=== PATIENT | male | born 1950 | race Hispanic/Latino ===

== ENCOUNTER 2020-06-26 15:39 | Emergency (ER) | payer OTHER ==
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
--- NOTE | 2020-06-26 19:38 | Cat Scan Report ---
CT head/brain wo con INDICATION / CLINICAL INFORMATION: 69 years Male; head injury. TECHNIQUE: Routine CT head without contrast. All CT scans at this location are performed using CT dos e reduction for ALARA by means of automated exposure control. COMPARISON: None. FINDINGS: BRAIN / INTRACRANIAL CONTENTS: The motion degrades the image quality. However, there is extensive cer ebral white matter disease most consistent with microvascular angiopathy. There is mild cerebral atro phy with associated mild prominence of the ventricular system. There is no clear CT evidence of acute intracranial hemorrhage or significant mass effect. ORBITS: No significant abnormality of visualized orbits. SINUSES / MASTOIDS: No significant abnormality in the visualized paranasal sinuses or mastoid air antonino ls. CRANIOCERVICAL JUNCTION: No significant abnormality. ADDITIONAL FINDINGS: None. IMPRESSION: 1. There is extensive microvascular angiopathy as described without CT evidence of acute intracranial hemorrhage. Signer Name: Guille Jennings MD Signed: 06/26/2020 7:34 PM Workstation Name: [id number]
[2020-06-26] MEDS ORDERED: ACETAMINOPHEN 500 MG TAB PO ONE (19:58)
[2020-06-26] MEDS ORDERED: DIPHtheria,PERTUSSIS(ACELL),TETANUS VACCINE/PF 0.5 ML VIAL IM ONE (19:59)
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
--- NOTE | 2020-06-26 20:48 | XRay Report ---
LEFT KNEE 3 VIEWS INDICATION / CLINICAL INFORMATION: Injury to left knee with pain and swelling COMPARISON: 12/25/2018 FINDINGS: BONES / JOINT(S): No acute fracture or subluxation. No significant arthritis. SOFT TISSUES: There is an effusion in the suprapatella bursa. ADDITIONAL FINDINGS: None. Signer Name: Chaz Mcclelland MD Signed: 06/26/2020 8:44 PM Workstation Name: [id number]
[2020-06-26 22:04] VITALS: BP 160/81
== END 2020-06-26 21:35 | disposition home or self-care (01) ==
LOC: ED 15:39
DX: S01.01XA Laceration without foreign body of scalp, initial encounter (principal); S20.229A Contusion of unspecified back wall of thorax, initial encounter; S09.90XA Unspecified injury of head, initial encounter; M25.462 Effusion, left knee; Z79.899 Other long term (current) drug therapy; Y04.8XXA Assault by other bodily force, initial encounter; Y93.89 Activity, other specified; Y92.89 Other specified places as the place of occurrence of the external cause; Y99.0 Civilian activity done for income or pay
CPT/HCPCS: 70450; 90471; 90715